=== PATIENT | female | born 1990 | race Caucasian/White ===

== ENCOUNTER → 2020-12-04 | Outpatient (CLI) | payer BC ==
[~2020-12-04] MED LIST: BACTRIM DS 8001 TAB PO; CEPHALEXIN500 M1 PO; FLINTSTONES1 CTB; LORTAB 5/500 501 TAB PO; NAPROSYN500 MG PO; NO HOME MEDICATIONS; PRENATAL1 TA1 PO; ZOFRAN 4MG T4 MG/TAB PO
== END ==
LOC: COL.RAD 10:24
DX: R07.89 Other chest pain (principal)

== ENCOUNTER → 2023-02-10 | Outpatient (REF) | payer BC ==
[~2023-02-10] MED LIST changes: +IBU600 MG PO; +NATURAL IRON65 MG; +PNV-SELECT1 TAB PO
== END ==
LOC: ZCOL.LAB 15:53
DX: N61.1 Abscess of the breast and nipple (principal)